=== PATIENT | male | born 1945 | race Caucasian/White ===

== ENCOUNTER 2020-10-17 07:21 | Emergency (ER) | payer OTHER ==
[~2020-10-17] VITALS: Ht 185.4 cm; Wt 99.8 kg
[2020-10-17 07:28] VITALS: BP 166/86
[2020-10-17] MEDS ORDERED: LIDOCAINE 1% HCL (LOCAL ANESTH.) INJ 20ML MDV ONE (08:24)
[2020-10-17] MEDS ORDERED: BACITRACIN TOP OINT 1 UD PKG TOP ONE (08:52)
[2020-10-17] MEDS ORDERED: TETANUS-DIPTH-ACEL PERTUSSIS 0.5ML SYR Tdap IM ONE ×2 (08:57→09:00)
== END 2020-10-17 09:08 | disposition home or self-care (01) ==
LOC: ER 07:21
DX: S92.511A Displaced fracture of proximal phalanx of right lesser toe(s), initial encounter for closed fracture (principal); S91.114A Laceration without foreign body of right lesser toe(s) without damage to nail, initial encounter; I10 Essential (primary) hypertension; F17.210 Nicotine dependence, cigarettes, uncomplicated; Z90.49 Acquired absence of other specified parts of digestive tract; W23.0XXA Caught, crushed, jammed, or pinched between moving objects, initial encounter; Y93.89 Activity, other specified; Y92.89 Other specified places as the place of occurrence of the external cause; Y99.8 Other external cause status
CPT/HCPCS: 12002; 73660; 90471; 90715; 99283; J2001

== ENCOUNTER 2020-10-20 07:38 | Emergency (ER) | payer OTHER ==
[~2020-10-20] VITALS: Ht 185.4 cm; Wt 99.8 kg
[2020-10-20 09:05] VITALS: BP 166/87
[2020-10-20] MEDS ORDERED: cefTRIAXone SOD 1,000 MG VL IM ONE (09:15)
[2020-10-20] MEDS ORDERED: LIDOCAINE 1% HCL (LOCAL ANESTH.) INJ 20ML MDV ONE (09:19)
== END 2020-10-20 09:58 | disposition home or self-care (01) ==
LOC: ER 07:38
DX: S91.114D Laceration without foreign body of right lesser toe(s) without damage to nail, subsequent encounter (principal); I10 Essential (primary) hypertension; F17.210 Nicotine dependence, cigarettes, uncomplicated; Z90.49 Acquired absence of other specified parts of digestive tract; X58.XXXD Exposure to other specified factors, subsequent encounter
CPT/HCPCS: 96372; 99283; J0696; J2001